=== PATIENT | female | born 1935 | race Caucasian/White ===

== ENCOUNTER 2020-12-29 18:50 | Inpatient (IN) | payer OTHER ==
[2020-12-29] MEDS ORDERED: SODIUM CHLORIDE 1,000 ML IV STA (19:16)
[2020-12-29] MEDS ORDERED: ONDANSETRON 4 MG/2 ML VIAL IVPUSH ONE (19:30)
[2020-12-29] MEDS ORDERED: ONDANSETRON 4 MG/2 ML VIAL ONE (19:37)
[2020-12-29 19:53] LABS: BASO % 3.5 % (0-2.0); EOS % 2.2 % (0-4.5); HEMATOCRIT 35.5 % (32.4-45.2); HEMOGLOBIN 11.3 GM/dl (10.7-15.3); LYMPH % 16.3 % (8-40); MCH 26.8 pg (25.7-33.7); MCHC 31.8 g/dl (32.0-36.0); MEAN CELL VOLUME 84.3 fl (80-96); MEAN PLT VOLUME 8.8 fl (7.5-11.1); MONO % 9.7 % (3.8-10.2); NEUT % 68.3 % (42.8-82.8); PLATELET COUNT 343 10^3/uL (134-434); RBC 4.21 M/mm3 (3.60-5.2); WHITE BLOOD COUNT 12.9 K/mm3 (4.0-10.8)
[2020-12-29 20:07] LABS: EPITHELIAL CELLS FEW /hpf
[2020-12-29 20:09] LABS: ALBUMIN 3.9 g/dl (3.4-5.0); ALK PHOS 113 U/L (45-117); ANION GAP 15 MMOL/L (8-16); BILIRUBIN,TOTAL 0.4 mg/dl (0.2-1); CALCIUM 9.1 mg/dl (8.5-10); CHLORIDE 108 mmol/L (98-107); CO2 13 mmol/L (21-32); CREATININE 3.3 mg/dl (0.55-1.3); GLUCOSE,RANDOM 105 mg/dl (74-106); MAGNESIUM 1.8 mg/dL (1.8-2.4); PHOSPHOROUS 4.5 mg/dl (2.5-4.9); SGOT/AST 16 U/L (15-37); SGPT/ALT 20 U/L (13-61); SODIUM 136 mmol/L (136-145); TOT PROT 7.1 g/dl (6.4-8.2)
[2020-12-29] MEDS ORDERED: SODIUM CHLORIDE 1,000 ML IV SCH (22:45)
[2020-12-30] MEDS ORDERED: PATIENT'S OWN MEDICATION (NON-FORMULARY) (Zolpidem Tartrate [Ambien] 10 MG Tablet) PO PRN (00:06)
[2020-12-30] MEDS: TACROLIMUS ANHYDROUS 1 MG CAPSULE PO SCH ×3 (00:30→21:38)
[2020-12-30] MEDS: MYCOPHENOLATE MOFETIL 250 MG CAPSULE PO SCH ×3 (00:30→21:38)
[2020-12-30] MEDS: SODIUM CHLORIDE 1,000 ML IV SCH (00:30)
[2020-12-30 00:54] VITALS: BMI 23.8
[2020-12-30] MEDS: ZOLPIDEM TARTRATE 5 MG TABLET PO PRN ×2 (02:10→21:39)
[2020-12-30] MEDS: LEVOTHYROXINE NA 75 MCG TABLET (FP) PO SCH (06:56)
[2020-12-30 08:28] LABS: BASO % 1.9 % (0-2.0); EOS % 3.5 % (0-4.5); HEMOGLOBIN 9.8 GM/dl (10.7-15.3); LYMPH % 23.7 % (8-40); MCH 27.4 pg (25.7-33.7); MCHC 32.6 g/dl (32.0-36.0); MEAN PLT VOLUME 8.7 fl (7.5-11.1); MONO % 11.3 % (3.8-10.2); NEUT % 59.6 % (42.8-82.8); PLATELET COUNT 265 10^3/uL (134-434); RBC 3.56 M/mm3 (3.60-5.2); RDW 14.2 % (11.6-15.6); WHITE BLOOD COUNT 8.5 K/mm3 (4.0-10.8)
[2020-12-30 09:05] LABS: ALBUMIN 3.3 g/dl (3.4-5.0); BILIRUBIN,TOTAL 0.5 mg/dl (0.2-1); CALCIUM 8.7 mg/dl (8.5-10); CREATININE 3.2 mg/dl (0.55-1.3)
[2020-12-30] MEDS: predniSONE 1 MG TABLET (FP) PO SCH (09:46)
[2020-12-30] MEDS: CYANOCOBALAMIN 1,000 MCG TABLET (FP) PO SCH (09:48)
[2020-12-30] MEDS: METOCLOPRAMIDE HCL INJECTION 10 MG/2 ML VIAL IVPUSH PRN (09:59)
[2020-12-30] MEDS: DOCUSATE SODIUM 100 MG CAPSULE (FP) PO SCH ×2 (11:25→21:37)
[2020-12-30] MEDS ORDERED: PT OWN MED DRAWER 7, Y5N ONE ×2 (11:25→21:34)
[2020-12-30 15:50] LABS: HEMOGLOBIN 9.4 GM/dl (10.7-15.3); MCH 27.4 pg (25.7-33.7); MCHC 32.5 g/dl (32.0-36.0); MEAN CELL VOLUME 84.3 fl (80-96); MEAN PLT VOLUME 8.6 fl (7.5-11.1); PLATELET COUNT 251 10^3/uL (134-434); RBC 3.44 M/mm3 (3.60-5.2); RDW 14.1 % (11.6-15.6); WHITE BLOOD COUNT 10.1 K/mm3 (4.0-10.8)
[2020-12-30] MEDS: SENNOSIDES 8.6MG TABLET (FP) PO SCH (21:36)
[2020-12-30] MEDS: ATORVASTATIN CA 20 MG TABLET (FP) PO SCH (21:38)
[2020-12-31] MEDS: LEVOTHYROXINE NA 75 MCG TABLET (FP) PO SCH (06:26)
[2020-12-31] MEDS: SODIUM CHLORIDE 1,000 ML IV SCH (06:26)
[2020-12-31] MEDS ORDERED: PT OWN MED DRAWER 7, Y5N ONE ×2 (09:11→21:35)
[2020-12-31] MEDS: DOCUSATE SODIUM 100 MG CAPSULE (FP) PO SCH ×2 (09:23→21:43)
[2020-12-31] MEDS: POLYETHYLENE GLYCOL (HEALTHYLAX) 3350 17 GM PACKET PO SCH (09:23)
[2020-12-31] MEDS: MYCOPHENOLATE MOFETIL 250 MG CAPSULE PO SCH ×2 (09:24→21:45)
[2020-12-31] MEDS: CYANOCOBALAMIN 1,000 MCG TABLET (FP) PO SCH (09:24)
[2020-12-31] MEDS: predniSONE 1 MG TABLET (FP) PO SCH (09:24)
[2020-12-31] MEDS: TACROLIMUS ANHYDROUS 1 MG CAPSULE PO SCH ×2 (09:25→21:45)
[2020-12-31] MEDS ORDERED: ONDANSETRON 4 MG/2 ML VIAL IVPUSH PRN (09:26)
[2020-12-31] MEDS: METOCLOPRAMIDE HCL INJECTION 10 MG/2 ML VIAL IVPUSH PRN (09:41)
[2020-12-31 09:49] LABS: HEMOGLOBIN 10.6 GM/dl (10.7-15.3); MCH 27.5 pg (25.7-33.7)
[2020-12-31 09:51] LABS: BASO % 4.5 % (0-2.0); EOS % 3.4 % (0-4.5); HEMATOCRIT 32.4 % (32.4-45.2); LYMPH % 14.8 % (8-40); MCHC 32.7 g/dl (32.0-36.0); MEAN CELL VOLUME 84.2 fl (80-96); MEAN PLT VOLUME 8.6 fl (7.5-11.1); MONO % 11.7 % (3.8-10.2); NEUT % 65.6 % (42.8-82.8); PLATELET COUNT 274 10^3/uL (134-434); RBC 3.85 M/mm3 (3.60-5.2); RDW 14.3 % (11.6-15.6); WHITE BLOOD COUNT 10.4 K/mm3 (4.0-10.8)
[2020-12-31 10:05] LABS: CALCIUM 8.9 mg/dl (8.5-10); CREATININE 3.1 mg/dl (0.55-1.3)
[2020-12-31 10:44] LABS: IRON SERUM 89 ug/dL (50-175); TOTAL IRON BINDING CAPACITY 267 ug/dL (250-450)
[2020-12-31] MEDS: SENNOSIDES 8.6MG TABLET (FP) PO SCH (21:44)
[2020-12-31] MEDS: ATORVASTATIN CA 20 MG TABLET (FP) PO SCH (21:45)
[2020-12-31] MEDS: ZOLPIDEM TARTRATE 5 MG TABLET PO PRN (21:45)
[2021-01-01] MEDS: SODIUM CHLORIDE 1,000 ML IV SCH (00:15)
[2021-01-01] MEDS: LEVOTHYROXINE NA 75 MCG TABLET (FP) PO SCH (06:15)
[2021-01-01 08:19] LABS: BASO % 1.6 % (0-2.0); EOS % 0.4 % (0-4.5); HEMATOCRIT 31.9 % (32.4-45.2); HEMOGLOBIN 10.3 GM/dl (10.7-15.3); LYMPH % 6.2 % (8-40); MCH 27.2 pg (25.7-33.7); MCHC 32.3 g/dl (32.0-36.0); MEAN CELL VOLUME 84.3 fl (80-96); MEAN PLT VOLUME 8.7 fl (7.5-11.1); MONO % 7.8 % (3.8-10.2); PLATELET COUNT 262 10^3/uL (134-434); RBC 3.79 M/mm3 (3.60-5.2); RDW 14.2 % (11.6-15.6); WHITE BLOOD COUNT 14.2 K/mm3 (4.0-10.8)
[2021-01-01 08:24] LABS: CALCIUM 8.7 mg/dl (8.5-10); CREATININE 2.8 mg/dl (0.55-1.3)
[2021-01-01] MEDS: DOCUSATE SODIUM 100 MG CAPSULE (FP) PO SCH (09:25)
[2021-01-01] MEDS: predniSONE 1 MG TABLET (FP) PO SCH (09:25)
[2021-01-01] MEDS: MYCOPHENOLATE MOFETIL 250 MG CAPSULE PO SCH ×2 (09:25→21:06)
[2021-01-01] MEDS: TACROLIMUS ANHYDROUS 1 MG CAPSULE PO SCH ×2 (09:25→22:45)
[2021-01-01] MEDS: POLYETHYLENE GLYCOL (HEALTHYLAX) 3350 17 GM PACKET PO SCH (09:25)
[2021-01-01] MEDS: CYANOCOBALAMIN 1,000 MCG TABLET (FP) PO SCH (09:25)
[2021-01-01] MEDS ORDERED: SODIUM CHLORIDE 0.45% 1,000 ML IV SCH (09:30)
[2021-01-01] MEDS: METOCLOPRAMIDE HCL INJECTION 10 MG/2 ML VIAL IVPUSH PRN (10:13)
[2021-01-01 10:56] LABS: EPITHELIAL CELLS FEW /hpf
[2021-01-01 14:08] LABS: CMV IgM < 30.0 AU/mL (0.0-29.9)
[2021-01-01] MEDS: SODIUM BICARBONATE 650 MG TABLET PO SCH ×2 (16:09→21:06)
[2021-01-01] MEDS ORDERED: PIPERACILLIN/TAZOBACTAM 2.25 GM VIAL IVPB ONE (17:07)
[2021-01-01] MEDS ORDERED: DEXTROSE 5%-WATER - 50 ML IVPB ONE (17:07)
[2021-01-01] MEDS: PIPERACILLIN/TAZOB 2.25 GM 2.25 GM in DEXTROSE 5%-WATER - 50 ML IVPB SCH (17:17)
[2021-01-01] MEDS: ATORVASTATIN CA 20 MG TABLET (FP) PO SCH (21:06)
[2021-01-01] MEDS: ZOLPIDEM TARTRATE 5 MG TABLET PO PRN (22:47)
[2021-01-02] MEDS ORDERED: DEXTROSE 5%-WATER - 50 ML IVPB ONE ×2 (00:45→09:28)
[2021-01-02] MEDS ORDERED: PIPERACILLIN/TAZOBACTAM 2.25 GM VIAL IVPB ONE ×2 (00:45→09:27)
[2021-01-02] MEDS: PIPERACILLIN/TAZOB 2.25 GM 2.25 GM in DEXTROSE 5%-WATER - 50 ML IVPB SCH ×2 (01:27→09:30)
[2021-01-02] MEDS: HEPARIN NA (PORCINE) 5,000 UNITS/ML 1ML VIAL SQ SCH ×3 (06:16→21:36)
[2021-01-02] MEDS: LEVOTHYROXINE NA 75 MCG TABLET (FP) PO SCH (06:16)
[2021-01-02 08:33] LABS: EOS % 4.4 % (0-4.5); HEMATOCRIT 29.9 % (32.4-45.2); HEMOGLOBIN 9.5 GM/dl (10.7-15.3); LYMPH % 13.5 % (8-40); MCH 26.6 pg (25.7-33.7); MCHC 31.6 g/dl (32.0-36.0); MEAN CELL VOLUME 84.2 fl (80-96); MEAN PLT VOLUME 8.5 fl (7.5-11.1); MONO % 11.5 % (3.8-10.2); NEUT % 66.6 % (42.8-82.8); PLATELET COUNT 239 10^3/uL (134-434); RBC 3.55 M/mm3 (3.60-5.2); RDW 14.4 % (11.6-15.6); WHITE BLOOD COUNT 7.9 K/mm3 (4.0-10.8)
[2021-01-02 08:44] LABS: ALBUMIN 3.2 g/dl (3.4-5.0); BILIRUBIN,TOTAL 0.8 mg/dl (0.2-1); CALCIUM 8.2 mg/dl (8.5-10); CREATININE 2.9 mg/dl (0.55-1.3); MAGNESIUM 1.5 mg/dL (1.8-2.4)
[2021-01-02] MEDS: SODIUM BICARBONATE 650 MG TABLET PO SCH ×2 (09:30→21:25)
[2021-01-02] MEDS: predniSONE 1 MG TABLET (FP) PO SCH (09:30)
[2021-01-02] MEDS: MYCOPHENOLATE MOFETIL 250 MG CAPSULE PO SCH ×2 (09:30→21:24)
[2021-01-02] MEDS: CYANOCOBALAMIN 1,000 MCG TABLET (FP) PO SCH (09:31)
[2021-01-02] MEDS: TACROLIMUS ANHYDROUS 1 MG CAPSULE PO SCH ×2 (09:31→21:25)
[2021-01-02] MEDS ORDERED: MAGNESIUM SULF 50% (8.12 MEQ/2 ML-1 GM VIAL) IVPB ONE (09:36)
[2021-01-02] MEDS ORDERED: MAGNESIUM SULFATE IN WATER 2 GM/50 ML IVPB IVPB ONE (10:15)
[2021-01-02] MEDS ORDERED: ACETAMINOPHEN 325 MG TABLET (FP) PO PRN (21:18)
[2021-01-02] MEDS: ATORVASTATIN CA 20 MG TABLET (FP) PO SCH (21:25)
[2021-01-02] MEDS: ZOLPIDEM TARTRATE 5 MG TABLET PO PRN (23:21)
[2021-01-03] MEDS: LEVOTHYROXINE NA 75 MCG TABLET (FP) PO SCH (06:22)
[2021-01-03] MEDS: HEPARIN NA (PORCINE) 5,000 UNITS/ML 1ML VIAL SQ SCH ×3 (06:23→21:46)
[2021-01-03 08:36] LABS: BASO % 1.9 % (0-2.0); HEMATOCRIT 27.6 % (32.4-45.2); HEMOGLOBIN 9.3 GM/dl (10.7-15.3); LYMPH % 28.4 % (8-40); MCH 28.3 pg (25.7-33.7); MCHC 33.6 g/dl (32.0-36.0); MEAN CELL VOLUME 84.1 fl (80-96); MEAN PLT VOLUME 8.6 fl (7.5-11.1); MONO % 10.7 % (3.8-10.2); PLATELET COUNT 221 10^3/uL (134-434); RBC 3.28 M/mm3 (3.60-5.2); WHITE BLOOD COUNT 7.1 K/mm3 (4.0-10.8)
[2021-01-03 08:46] LABS: ALBUMIN 3.1 g/dl (3.4-5.0); BILIRUBIN,TOTAL 0.6 mg/dl (0.2-1); CALCIUM 8.5 mg/dl (8.5-10); CREATININE 2.9 mg/dl (0.55-1.3); MAGNESIUM 2.1 mg/dL (1.8-2.4); TOT PROT 5.8 g/dl (6.4-8.2)
[2021-01-03] MEDS: SODIUM BICARBONATE 650 MG TABLET PO SCH ×2 (10:11→21:45)
[2021-01-03] MEDS: TACROLIMUS ANHYDROUS 1 MG CAPSULE PO SCH ×2 (10:11→21:46)
[2021-01-03] MEDS: predniSONE 1 MG TABLET (FP) PO SCH (10:13)
[2021-01-03] MEDS: MYCOPHENOLATE MOFETIL 250 MG CAPSULE PO SCH ×2 (10:13→21:45)
[2021-01-03] MEDS: CYANOCOBALAMIN 1,000 MCG TABLET (FP) PO SCH (10:14)
[2021-01-03] MEDS ORDERED: cefTRIAXone SODIUM 1 GM VIAL ONE (13:49)
[2021-01-03] MEDS ORDERED: DEXTROSE 5%-WATER - 50 ML IVPB ONE (13:49)
[2021-01-03] MEDS: CEFTRIAXONE 1 GM in DEXTROSE 5%-WATER - 50 ML IVPB SCH (13:55)
[2021-01-03] MEDS: SODIUM CHLORIDE 0.45% 1,000 ML IV SCH ×2 (19:21→19:22)
[2021-01-03] MEDS: ATORVASTATIN CA 20 MG TABLET (FP) PO SCH (21:45)
[2021-01-03] MEDS: ZOLPIDEM TARTRATE 5 MG TABLET PO PRN (23:04)
[2021-01-04] MEDS: LEVOTHYROXINE NA 75 MCG TABLET (FP) PO SCH (06:39)
[2021-01-04] MEDS: HEPARIN NA (PORCINE) 5,000 UNITS/ML 1ML VIAL SQ SCH ×3 (06:39→21:24)
[2021-01-04] MEDS ORDERED: DEXTROSE 5%-WATER - 50 ML IVPB ONE (09:20)
[2021-01-04] MEDS ORDERED: cefTRIAXone SODIUM 1 GM VIAL ONE (09:20)
[2021-01-04] MEDS: CEFTRIAXONE 1 GM in DEXTROSE 5%-WATER - 50 ML IVPB SCH (09:43)
[2021-01-04] MEDS: predniSONE 1 MG TABLET (FP) PO SCH (09:47)
[2021-01-04] MEDS: MYCOPHENOLATE MOFETIL 250 MG CAPSULE PO SCH ×2 (09:47→21:23)
[2021-01-04] MEDS: SODIUM BICARBONATE 650 MG TABLET PO SCH ×3 (09:47→21:23)
[2021-01-04] MEDS: CYANOCOBALAMIN 1,000 MCG TABLET (FP) PO SCH (09:48)
[2021-01-04] MEDS: TACROLIMUS ANHYDROUS 1 MG CAPSULE PO SCH ×2 (09:55→21:23)
[2021-01-04 10:09] LABS: CALCIUM 8.7 mg/dl (8.5-10); CREATININE 2.7 mg/dl (0.55-1.3)
[2021-01-04] MEDS: METOCLOPRAMIDE HCL INJECTION 10 MG/2 ML VIAL IVPUSH PRN (13:56)
[2021-01-04] MEDS: SODIUM CHLORIDE 0.45% 1,000 ML IV SCH (13:57)
[2021-01-04] MEDS: ATORVASTATIN CA 20 MG TABLET (FP) PO SCH (21:22)
[2021-01-05] MEDS: ZOLPIDEM TARTRATE 5 MG TABLET PO PRN ×2 (00:15→23:32)
[2021-01-05] MEDS: HEPARIN NA (PORCINE) 5,000 UNITS/ML 1ML VIAL SQ SCH ×3 (06:00→21:18)
[2021-01-05] MEDS: SODIUM BICARBONATE 650 MG TABLET PO SCH ×3 (06:00→21:18)
[2021-01-05] MEDS: LEVOTHYROXINE NA 75 MCG TABLET (FP) PO SCH (06:00)
[2021-01-05] MEDS ORDERED: cefTRIAXone SODIUM 1 GM VIAL ONE (09:21)
[2021-01-05] MEDS ORDERED: DEXTROSE 5%-WATER - 50 ML IVPB ONE (09:22)
[2021-01-05] MEDS: CEFTRIAXONE 1 GM in DEXTROSE 5%-WATER - 50 ML IVPB SCH (09:59)
[2021-01-05] MEDS: TACROLIMUS ANHYDROUS 1 MG CAPSULE PO SCH ×2 (10:00→21:18)
[2021-01-05] MEDS: predniSONE 1 MG TABLET (FP) PO SCH (10:00)
[2021-01-05] MEDS: MYCOPHENOLATE MOFETIL 250 MG CAPSULE PO SCH ×2 (10:00→21:18)
[2021-01-05] MEDS: CYANOCOBALAMIN 1,000 MCG TABLET (FP) PO SCH (10:00)
[2021-01-05 11:50] LABS: BASO % 3.1 % (0-2.0); EOS % 2.6 % (0-4.5); HEMATOCRIT 28.3 % (32.4-45.2); HEMOGLOBIN 9.3 GM/dl (10.7-15.3); MCH 27.5 pg (25.7-33.7); MCHC 32.8 g/dl (32.0-36.0); MEAN CELL VOLUME 83.7 fl (80-96); MEAN PLT VOLUME 8.5 fl (7.5-11.1); MONO % 8.4 % (3.8-10.2); NEUT % 71.9 % (42.8-82.8); PLATELET COUNT 234 10^3/uL (134-434); RBC 3.38 M/mm3 (3.60-5.2); RDW 14.1 % (11.6-15.6); WHITE BLOOD COUNT 8.9 K/mm3 (4.0-10.8)
[2021-01-05 12:19] LABS: ALBUMIN 3.1 g/dl (3.4-5.0); BILIRUBIN,TOTAL 0.3 mg/dl (0.2-1); CALCIUM 8.8 mg/dl (8.5-10); MAGNESIUM 1.7 mg/dL (1.8-2.4); TOT PROT 6.1 g/dl (6.4-8.2)
[2021-01-05 12:29] LABS: CREATININE 2.7 mg/dl (0.55-1.3)
[2021-01-05] MEDS: SODIUM CHLORIDE 0.45% 1,000 ML IV SCH (13:58)
[2021-01-05] MEDS ORDERED: LOPERAMIDE HCL 2 MG CAPSULE PO ONE (16:15)
[2021-01-05] MEDS: ATORVASTATIN CA 20 MG TABLET (FP) PO SCH (21:18)
[2021-01-06] MEDS: HEPARIN NA (PORCINE) 5,000 UNITS/ML 1ML VIAL SQ SCH ×2 (06:58→13:57)
[2021-01-06] MEDS: SODIUM BICARBONATE 650 MG TABLET PO SCH ×2 (06:58→13:57)
[2021-01-06] MEDS: LEVOTHYROXINE NA 75 MCG TABLET (FP) PO SCH (06:58)
[2021-01-06 08:24] LABS: ALBUMIN 3.3 g/dl (3.4-5.0); BILIRUBIN,TOTAL 0.4 mg/dl (0.2-1); CALCIUM 9.2 mg/dl (8.5-10); CREATININE 2.9 mg/dl (0.55-1.3); MAGNESIUM 1.5 mg/dL (1.8-2.4); TOT PROT 6.1 g/dl (6.4-8.2)
[2021-01-06] MEDS ORDERED: LOPERAMIDE HCL 2 MG CAPSULE PO ONE (09:19)
[2021-01-06] MEDS ORDERED: cefTRIAXone SODIUM 1 GM VIAL ONE (09:29)
[2021-01-06] MEDS ORDERED: DEXTROSE 5%-WATER - 50 ML IVPB ONE (09:29)
[2021-01-06] MEDS: CEFTRIAXONE 1 GM in DEXTROSE 5%-WATER - 50 ML IVPB SCH (09:30)
[2021-01-06] MEDS: TACROLIMUS ANHYDROUS 1 MG CAPSULE PO SCH (09:31)
[2021-01-06] MEDS: MYCOPHENOLATE MOFETIL 250 MG CAPSULE PO SCH (09:32)
[2021-01-06] MEDS: CYANOCOBALAMIN 1,000 MCG TABLET (FP) PO SCH (09:32)
[2021-01-06] MEDS: predniSONE 1 MG TABLET (FP) PO SCH (09:32)
[2021-01-06 10:11] LABS: BASO % 0.8 % (0-2.0); EOS % 3.4 % (0-4.5); HEMATOCRIT 30.6 % (32.4-45.2); HEMOGLOBIN 9.7 GM/dL (10.7-15.3); LYMPH % 25.9 % (8-40); MCHC 31.8 g/dl (32.0-36.0); MEAN CELL VOLUME 85.1 fl (80-96); MEAN PLT VOLUME 8.8 fl (7.5-11.1); MONO % 9.3 % (3.8-10.2); NEUT % 60.6 % (42.8-82.8); PLATELET COUNT 250 10^3/uL (134-434); RDW 15.2 % (11.6-15.6); WHITE BLOOD COUNT 9.2 K/mm3 (4.0-10.0)
[2021-01-06 14:03] VITALS: TEMP 98.3
[2021-01-06 19:19] VITALS: BP 144/52; PULSE 92
== END 2021-01-06 22:54 | disposition short-term general hospital (02) | DRG 699 ==
LOC: FER 18:50 → FM/S 23:32 → UNDODISIN 01-01 13:03
PROVIDERS: ADMIT Internal Medicine; ATTEND Nurse Practitioner Family
DX: T86.11 Kidney transplant rejection (principal); N17.9 Acute kidney failure, unspecified; E87.3 Alkalosis; N39.0 Urinary tract infection, site not specified; Y83.0 Surgical operation with transplant of whole organ as the cause of abnormal reaction of the patient, or of later complication, without mention of misadventure at the time of the procedure; E03.9 Hypothyroidism, unspecified; E78.5 Hyperlipidemia, unspecified; K59.00 Constipation, unspecified; G47.00 Insomnia, unspecified; D64.9 Anemia, unspecified; R19.7 Diarrhea, unspecified; B96.20 Unspecified Escherichia coli [E. coli] as the cause of diseases classified elsewhere; I12.9 Hypertensive chronic kidney disease with stage 1 through stage 4 chronic kidney disease, or unspecified chronic kidney disease; N18.9 Chronic kidney disease, unspecified
CPT/HCPCS: 36415; 74176-TC; 76775-TC; 76776-TC; 80048; 80053; 80197; 81003; 81015; 82272; 82550; 82607; 82728; 82747; 83540; 83550; 83735; 84100; 84443; 84484; 85014; 85025; 85027; 86645; 86664; 87040; 87045; 87046; 87086; 87186; 87324; 87449; 87497; 87799; 93005; 99285-25; C9803; J1644; J7517; U0003; U0005